=== PATIENT | female | born 1985 | race African-American/Black ===

== ENCOUNTER 2017-03-08 16:46 | Emergency (ER) | payer OTHER ==
[~2017-03-08] VITALS: Ht 160 cm; Wt 59.0 kg
[~2017-03-08 16:46] MED LIST: IBUPROFEN 600600 M1 PO
[2017-03-08] MEDS ORDERED: DELTASONE20 MG PO (20:27)
[2017-03-08] MEDS ORDERED: MOBIC15 MG PO (20:27)
[2017-03-08] MEDS ORDERED: PENICILLIN V P500 MG PO (20:27)
[2017-03-08 21:03] LABS: URINE BILIRUBIN NEGATIVE (Negative); URINE BLOOD 2+ (Negative); URINE COLOR YELLOW; URINE GLUCOSE-RANDOM* NEGATIVE (Negative); URINE KETONES 1+ (Negative); URINE NITRITE NEGATIVE (Negative); URINE PROTEIN (DIPSTICK) TRACE (Negative); URINE SPECIFIC GRAVITY 1.015 (1.003-1.035); URINE UROBILINOGEN 0.2 E.U./dl (0.2-1.0)
[2017-03-08 21:15] VITALS: BP 118/71
[2017-03-08 21:15] LABS: BACTERIA 1-9 Few /HPF (None Seen); CASTS None Seen /LPF (None Seen); CRYSTALS None Seen /LPF (None Seen); SQUAMOUS 0-3 Few /LPF (0-3); URINE RBC 0-2 Rare /HPF (0-2); URINE WBC None Seen /HPF (0-5)
== END 2017-03-08 21:15 | disposition home or self-care (01) ==
LOC: ER 16:46
PROVIDERS: Physician Assistant
DX: J02.0 Streptococcal pharyngitis (principal)

== ENCOUNTER 2017-05-25 19:53 | Emergency (ER) | payer OTHER ==
[~2017-05-25] VITALS: Ht 160 cm; Wt 76.7 kg
[~2017-05-25 19:53] MED LIST changes: +DELTASONE20 MG PO; +MOBIC15 MG PO; +PENICILLIN V P500 MG PO
[2017-05-25 19:55] VITALS: BP 112/75
[2017-05-25] MEDS ORDERED: CIPROFLOXIN HC2.5 M1 OPHTHALMIC (20:50)
[2017-05-25] MEDS ORDERED: ZADITOR5 M1 OPHTHALMIC (20:52)
== END 2017-05-25 21:16 | disposition home or self-care (01) ==
LOC: ER 19:53
DX: H57.8 Other specified disorders of eye and adnexa (principal); J30.2 Other seasonal allergic rhinitis